=== PATIENT | male | born 1995 | race Caucasian/White ===

== ENCOUNTER 2019-03-08 10:03 | Emergency (ER) | payer MEDICAID ==
[~2019-03-08] VITALS: Ht 167.6 cm; Wt 54.5 kg
[~2019-03-08 10:03] MED LIST: HYDR-4061 PO
[2019-03-08 10:16] VITALS: BP 133/69
== END 2019-03-08 12:21 | disposition home or self-care (01) ==
LOC: EMS 10:13
DX: R22.2 Localized swelling, mass and lump, trunk (principal)